=== PATIENT | male | born 1940 | race Caucasian/White ===

== ENCOUNTER 2016-06-30 18:33 | Emergency (ER) | payer MEDICARE, MEDICAID ==
[2014-08-04 22:23] VITALS: BMI 30.3
[~2016-06-30 18:33] MED LIST: ACTOS30 MG PO; CARDIZEM 90 MG90 MG PO; COMBIVENT RESPIM4 GM INH; GLUCOPHAGE500 MG PO; LEVAQUIN750 MG PO; STERAPRED 5MG 125 MG PO
[2016-06-30 19:22] LABS: BASOPHILS 0.3 % (0.0-2.0); HEMOGLOBIN 12.5 g/dL (13.5-17.5); IMMATURE GRANULOCYTES 0.2 % (0-5); LYMPHOCYTES 13.3 % (15-50); MCH 27.6 pg (26.0-34.0); MCHC 32.1 g/dL (31.0-37.0); MCV 86.1 fL (80.0-100.0); MONOCYTES 7.5 % (2-11); NEUTROPHILS 71.7 % (40-80); PLATELET COUNT 284 10x3/uL (130-400); RBC 4.53 10x6/uL (4.20-6.10); RDW 14.5 % (11.5-14.5); WBC 9.7 10x3/uL (4.8-10.8)
[2016-06-30 19:31] LABS: ANION GAP 12.2 mmol/L (8-16); CALCIUM 8.9 mg/dL (8.5-10.1); CARBON DIOXIDE 28.2 mmol/L (21.0-32.0); CREATININE - SERUM 1.2 mg/dL (0.6-1.3); POTASSIUM - SERUM 4.4 mmol/L (3.5-5.1)
== END 2016-06-30 20:41 | disposition home or self-care (01) ==
LOC: D.ER 18:33
PROVIDERS: Family Medicine
DX: R42 Dizziness and giddiness (principal); E11.9 Type 2 diabetes mellitus without complications; I10 Essential (primary) hypertension; J44.9 Chronic obstructive pulmonary disease, unspecified

== ENCOUNTER 2016-10-10 17:27 | Inpatient (IN) | payer MEDICARE, MEDICAID ==
[~2016-10-10] VITALS: Ht 171.4 cm; Wt 86.2 kg
[2016-10-10 18:08] LABS: BASOPHILS 0.7 % (0-2); EOSINOPHILS 3.4 % (0-7); HEMATOCRIT 43.1 % (42.0-54.0); HEMOGLOBIN 14.3 g/dL (13.5-17.5); IMMATURE GRANULOCYTES 0.5 % (0-5); LYMPHOCYTES 17.3 % (15-50); MCH 29.5 pg (26.0-34.0); MCHC 33.2 g/dL (31.0-37.0); MEAN PLATELET VOLUME 11.1 fL (7.4-10.4); MONOCYTES 8.4 % (2-11); NEUTROPHILS 69.7 % (40-80); PLATELET COUNT 329 10x3/uL (130-400); RBC 4.84 10x6/uL (4.20-6.10); RDW 13.9 % (11.5-14.5); WBC 10.4 10x3/uL (4.8-10.8)
[2016-10-10 18:42] LABS: ALBUMIN 3.5 g/dL (3.4-5.0); ANION GAP 18.3 mmol/L (8-16); BILIRUBIN - TOTAL 0.5 mg/dL (0.2-1.3); CALCIUM 9.4 mg/dL (8.5-10.1); CREATININE - SERUM 1.6 mg/dL (0.6-1.3); POTASSIUM - SERUM 5.3 mmol/L (3.5-5.1); PROTEIN - SERUM 8.5 g/dL (6.4-8.2)
[2016-10-10 20:09] LABS: APPEARANCE SLT CLOUDY (CLEAR); BILIRUBIN NEGATIVE (NEGATIVE); COLOR YELLOW (YELLOW); GLUCOSE 1000 mg/dL (NEGATIVE); KETONE SMALL mg/dL (NEGATIVE); LEUKOCYTE ESTERASE 2+ (NEGATIVE); NITRITE NEGATIVE (NEGATIVE); PROTEIN NEGATIVE (NEGATIVE); UROBILINOGEN NORMAL (NORMAL)
[2016-10-10 20:12] LABS: BACTERIA FEW /hpf (NONE SEEN); EPITHELIAL CELLS RARE /hpf (0-5); RED CELLS - URINE 0-5 /hpf (0-5); WHITE CELLS - URINE >50 /hpf (0-5)
[2016-10-10] MEDS ORDERED: FERROUS SULFAT325 MG PO (21:51)
[2016-10-10] MEDS ORDERED: PROVENTIL HFA6.7 GM INH (21:52)
[2016-10-10] MEDS ORDERED: COMBIVENT RESPIM4 GM INH (21:53)
--- NOTE | 2016-10-10 21:59 | NUR ---
RECIEVED TO ROOM 2228 VIA WHEELCHAIR FROM ER AWAKE AND ALERT ORINETD X 3 LUNGS CLAER BILAT. LAST FSBS AT 2100 283 TREATED IN ER. WILL MONITOR.
[2016-10-10 22:37] VITALS: BP 115/66; BMI 29.3
--- NOTE | 2016-10-11 02:16 | NUR ---
PT RESTING QUIETLY WITH NO DISTRESS NOTED VOICES ALL NEEDS TO STAFF STATED TO THIS NURSE THAT HE WAS HUNGRY AND HAD NOT EATEN SINCE BEFORE NOON WAS GIVEN A SANDWICH TRAY AND A CUP OF COFFEE PER REQUEST WELL A GALSS OF ICE WATER. WILL MONITOR.
[2016-10-11 04:00] VITALS: BP 97/47
--- NOTE | 2016-10-11 05:20 | NUR ---
PT RESTING WELL IN BED WITH EYES CLOSED NO ACUTE DISTRESS NOTED. CALL LIGHT IN REACH SIDE RAILS UP X 2
[2016-10-11 08:44] VITALS: BP 93/60
[2016-10-11 10:46] VITALS: Ht 171.4 cm; Wt 86.2 kg
[2016-10-11 11:09] LABS: BASOPHILS 0.6 % (0-2); EOSINOPHILS 5.9 % (0-7); HEMATOCRIT 39.2 % (42.0-54.0); IMMATURE GRANULOCYTES 0.3 % (0-5); LYMPHOCYTES 21.3 % (15-50); MCHC 33.2 g/dL (31.0-37.0); MCV 87.5 fL (80.0-100.0); MEAN PLATELET VOLUME 10.5 fL (7.4-10.4); NEUTROPHILS 61.9 % (40-80); PLATELET COUNT 281 10x3/uL (130-400); RBC 4.48 10x6/uL (4.20-6.10); RDW 13.8 % (11.5-14.5)
[2016-10-11 11:12] LABS: WBC 6.8 10x3/uL (4.8-10.8)
[2016-10-11 11:34] LABS: ALBUMIN 2.9 g/dL (3.4-5.0); ANION GAP 11.1 mmol/L (8-16); BILIRUBIN - TOTAL 0.44 mg/dL (0.2-1.3); CALCIUM 8.3 mg/dL (8.5-10.1); CREATININE - SERUM 1.5 mg/dL (0.6-1.3); POTASSIUM - SERUM 4.8 mmol/L (3.5-5.1); PROTEIN - SERUM 7.3 g/dL (6.4-8.2)
[2016-10-11 11:35] LABS: CARBON DIOXIDE 27.7 mmol/L (21.0-32.0)
[2016-10-11 12:40] VITALS: BP 104/59
[2016-10-11 12:47] LABS: HEMOGLOBIN A1C 13.1 % (4.8-6.0)
[2016-10-11 16:12] VITALS: BP 109/59
[2016-10-11 19:00] VITALS: BP 111/63
--- NOTE | 2016-10-11 19:30 | NUR ---
PT ASSESSMENT COMPLETE NO ACUTE DISTRESSNTOED VOICES ALL NEEDS TO STAFF PT AWAKE AND ALERT LYING IN BED MOVES ALL EXTREMITIES TO COMMAND BLOOD SUGAR TREATED PER SLIDING SCALE INSULIN PER ORDER WILL MONITOR.
--- NOTE | 2016-10-11 21:00 | NUR ---
PT FSBS 295 TREATED PER ORDER GIVEN SNACK OF PEANUT BUTTER AND GRAHM CRACKERS AND MILK TO PREVENT HYOGYLECMIC EPISODE AFTER TREATMENT OF BLOOD GLUCOSE.
--- NOTE | 2016-10-11 22:56 | NUR ---
ASSESSED, PT IS ASLEEP WITH EASY RESPIRATIONS AND NO DISTRESS NOTED. O2 AT 2 LITERS, TV ON, BED IS LOW, RAILS UP X'1 WITH THE BED ALARM AT HAND.
[2016-10-12] VITALS (7 sets, daily range): BP systolic 93–126; BP diastolic 50–73
--- NOTE | 2016-10-12 01:01 | NUR ---
RESTING IN BED WIH EYES CLOSED LEFT SIDE LYING NO DISTRESS NOTED SIDE RAILS UP X 2 CALL LIGHT IN REACH
--- NOTE | 2016-10-12 04:43 | NUR ---
PT WITH NO ACUTE DISTRESS NOTED VOICES ALL NEEDS OT STAFF CALL LIGHT INREACH SIDE RAILS UP X 2 EYES CLOSED RESPS EVEN AND NON LABORED AROUSES EASILY TO VERBAL STIMULI
--- NOTE | 2016-10-12 05:55 | NUR ---
FSBS 405 COVERED WITH 20 UNITS OF HUMULIN R PER ORDER VERIFIED PER RELOCATION COMMISSIONER. GIVEN 2% MILK FOR PROTIEN BALANCE
[2016-10-12 06:11] LABS: BASOPHILS 0.6 % (0-2); EOSINOPHILS 6.8 % (0-7); HEMATOCRIT 38.5 % (42.0-54.0); HEMOGLOBIN 12.7 g/dL (13.5-17.5); IMMATURE GRANULOCYTES 0.4 % (0-5); LYMPHOCYTES 23.2 % (15-50); MCH 29.1 pg (26.0-34.0); MCV 88.1 fL (80.0-100.0); MEAN PLATELET VOLUME 10.9 fL (7.4-10.4); MONOCYTES 11.5 % (2-11); NEUTROPHILS 57.5 % (40-80); PLATELET COUNT 288 10x3/uL (130-400); RBC 4.37 10x6/uL (4.20-6.10); RDW 13.8 % (11.5-14.5); WBC 8.4 10x3/uL (4.8-10.8)
[2016-10-12 06:44] LABS: ALBUMIN 2.8 g/dL (3.4-5.0); ANION GAP 11.7 mmol/L (8-16); BILIRUBIN - TOTAL 0.3 mg/dL (0.2-1.3); CALCIUM 8.5 mg/dL (8.5-10.1); CARBON DIOXIDE 27.1 mmol/L (21.0-32.0); CREATININE - SERUM 1.5 mg/dL (0.6-1.3); POTASSIUM - SERUM 4.8 mmol/L (3.5-5.1); PROTEIN - SERUM 7.6 g/dL (6.4-8.2)
--- NOTE | 2016-10-12 07:35 | NUR ---
PT AOX4 RESP EVEN AND NONLABORED PT DENIES NEEDS AT THIS TIME IV TO LEFT FOREARM PATENT AND INTACT AT THIS TIME IV TO LEFT FOREARM PATENT AND INTACT SRX2 BED AT LOWEST SETTING CALL LIGHT WITHIN REACH WILL CONTINUE TO MONITOR
[2016-10-12 09:45] LABS: APPEARANCE TURBID (CLEAR); BILIRUBIN NEGATIVE (NEGATIVE); COLOR YELLOW (YELLOW); GLUCOSE 1000 mg/dL (NEGATIVE); KETONE NEGATIVE (NEGATIVE); LEUKOCYTE ESTERASE 2+ (NEGATIVE); NITRITE NEGATIVE (NEGATIVE); PROTEIN TRACE mg/dL (NEGATIVE); SPECIFIC GRAVITY 1.015 (1.005-1.020); UROBILINOGEN NORMAL (NORMAL)
[2016-10-12 09:49] LABS: BACTERIA MANY /hpf (NONE SEEN); EPITHELIAL CELLS OCC /hpf (0-5); RED CELLS - URINE 0-5 /hpf (0-5); WHITE CELLS - URINE >50 /hpf (0-5)
[2016-10-12] MEDS ORDERED: ROBAXIN-750750 MG PO (18:41)
[2016-10-12] MEDS ORDERED: LIPITOR20 MG PO (18:43)
[2016-10-12] MEDS ORDERED: LISINOPRIL2.5 MG PO (18:43)
[2016-10-12] MEDS ORDERED: BAYER CHEWABLE81 MG PO (18:44)
[2016-10-12] MEDS ORDERED: FERROUS SULFAT325 MG PO (18:45)
[2016-10-12] MEDS ORDERED: CARDIZEM60 MG PO (18:47)
--- NOTE | 2016-10-13 02:48 | NUR ---
RESTING WITH EYES CLOSED, NO DISTRESS NOTED, SAFETY MEASURES IN PLACE, CL IN REACH
[2016-10-13 03:54] VITALS: BP 116/54
[2016-10-13 06:46] LABS: BASOPHILS 0.7 % (0-2); EOSINOPHILS 7.7 % (0-7); HEMATOCRIT 37.3 % (42.0-54.0); HEMOGLOBIN 12.2 g/dL (13.5-17.5); IMMATURE GRANULOCYTES 0.4 % (0-5); LYMPHOCYTES 25.9 % (15-50); MCH 28.6 pg (26.0-34.0); MCHC 32.7 g/dL (31.0-37.0); MCV 87.6 fL (80.0-100.0); MEAN PLATELET VOLUME 11.2 fL (7.4-10.4); MONOCYTES 12.3 % (2-11); PLATELET COUNT 286 10x3/uL (130-400); RBC 4.26 10x6/uL (4.20-6.10); RDW 13.8 % (11.5-14.5); WBC 8.6 10x3/uL (4.8-10.8)
[2016-10-13 07:10] LABS: ALBUMIN 2.7 g/dL (3.4-5.0); BILIRUBIN - TOTAL 0.37 mg/dL (0.2-1.3); CALCIUM 8.1 mg/dL (8.5-10.1); CARBON DIOXIDE 26.7 mmol/L (21.0-32.0); CREATININE - SERUM 1.2 mg/dL (0.6-1.3); POTASSIUM - SERUM 4.7 mmol/L (3.5-5.1); PROTEIN - SERUM 7.3 g/dL (6.4-8.2)
--- NOTE | 2016-10-13 07:25 | NUR ---
SLEEPING AT THIS TIME WITH RESPIRATIONS EVEN AND NON LABORED. CALL LIGHT IN REACH, WILL CONTINUE WITH PLAN OF CARE.
[2016-10-13 08:59] VITALS: BP 121/59
--- NOTE | 2016-10-13 09:00 | NUR ---
DENIES NEEDS AT THIS TIME. ASSESSMENT PERFORMED PER FLOWSHEET. CALL LIGHT IN REACH, WILL CONTINUE WITH PLAN OF CARE
[2016-10-13] MEDS ORDERED: GLUCOTROL 5 MG T5 MG PO (13:29)
[2016-10-13] MEDS ORDERED: BACTRIM DS TABL1 TAB PO (13:37)
--- NOTE | 2016-10-13 14:03 | NUR ---
IV TO LEFT AC D/C WITH CATH TIP INTACT. DISCHARGE PAPERWORK REVIEWED AND PT D/C HOME WITH HIS .
== END 2016-10-13 14:04 | disposition home or self-care (01) | DRG 638 ==
LOC: D.ER 17:27 → D.MS 19:57
PROVIDERS: Emergency Medicine; ADMIT Emergency Medicine
DX: E11.65 Type 2 diabetes mellitus with hyperglycemia (principal); E87.1 Hypo-osmolality and hyponatremia; N17.9 Acute kidney failure, unspecified; E87.5 Hyperkalemia; Z87.891 Personal history of nicotine dependence; J44.9 Chronic obstructive pulmonary disease, unspecified; I10 Essential (primary) hypertension

== ENCOUNTER 2016-10-22 16:50 | Inpatient (IN) | payer MEDICARE, MEDICAID ==
[~2016-10-22] VITALS: Ht 172.7 cm; Wt 81.8 kg
[~2016-10-22 16:50] MED LIST changes: +BACTRIM DS TABL1 TAB PO; +BAYER CHEWABLE81 MG PO; +CARDIZEM60 MG PO; +FERROUS SULFAT325 MG PO; +GLUCOTROL 5 MG T5 MG PO; +LIPITOR20 MG PO; +LISINOPRIL2.5 MG PO; +PROVENTIL HFA6.7 GM INH; +ROBAXIN-750750 MG PO
[2016-10-22 17:30] LABS: BASOPHILS 0.6 % (0-2); EOSINOPHILS 2.9 % (0-7); HEMATOCRIT 41.2 % (42.0-54.0); HEMOGLOBIN 13.8 g/dL (13.5-17.5); IMMATURE GRANULOCYTES 0.4 % (0-5); LYMPHOCYTES 17.5 % (15-50); MCH 29.6 pg (26.0-34.0); MCHC 33.5 g/dL (31.0-37.0); MCV 88.2 fL (80.0-100.0); MEAN PLATELET VOLUME 10.3 fL (7.4-10.4); MONOCYTES 7.8 % (2-11); NEUTROPHILS 70.8 % (40-80); RBC 4.67 10x6/uL (4.20-6.10); RDW 13.6 % (11.5-14.5); WBC 10.3 10x3/uL (4.8-10.8)
[2016-10-22 17:34] LABS: PLATELET COUNT 376 10x3/uL (130-400)
[2016-10-22 17:54] LABS: ALBUMIN 3.8 g/dL (3.4-5.0); ANION GAP 17.1 mmol/L (8-16); BILIRUBIN - TOTAL 0.28 mg/dL (0.2-1.3); CALCIUM 9.3 mg/dL (8.5-10.1); CARBON DIOXIDE 21.4 mmol/L (21.0-32.0); CREATININE - SERUM 1.9 mg/dL (0.6-1.3); PROTEIN - SERUM 8.7 g/dL (6.4-8.2)
[2016-10-22 18:07] LABS: POTASSIUM - SERUM 8.5 mmol/L (3.5-5.1)
[2016-10-22 19:45] LABS: CKMB 0.9 U/L (0.0-3.6); CREATINE KINASE 91 UL (21-232)
[2016-10-22 19:48] LABS: TROPONIN-I < 0.017 ng/mL (0.000-0.060)
[2016-10-22 21:09] LABS: APPEARANCE CLEAR (CLEAR); BACTERIA MODERATE /hpf (NONE SEEN); BILIRUBIN NEGATIVE (NEGATIVE); COLOR YELLOW (YELLOW); GLUCOSE 500 mg/dL (NEGATIVE); KETONE NEGATIVE (NEGATIVE); LEUKOCYTE ESTERASE 2+ (NEGATIVE); NITRITE NEGATIVE (NEGATIVE); PROTEIN NEGATIVE (NEGATIVE); UROBILINOGEN NORMAL (NORMAL); WHITE CELLS - URINE 25-50 /hpf (0-5)
[2016-10-22 23:14] LABS: ALBUMIN 3.4 g/dL (3.4-5.0); BILIRUBIN - TOTAL 0.45 mg/dL (0.2-1.3); CALCIUM 9.1 mg/dL (8.5-10.1); CARBON DIOXIDE 18.6 mmol/L (21.0-32.0); CREATININE - SERUM 1.6 mg/dL (0.6-1.3); PROTEIN - SERUM 8.4 g/dL (6.4-8.2)
[2016-10-22 23:24] LABS: POTASSIUM - SERUM 6.6 mmol/L (3.5-5.1)
--- NOTE | 2016-10-23 01:20 | NUR ---
RECIEVED TO ROOM 2117 FROM ER VIA . PT A&O. O2 AT 3 LITER VIA NC. IV TO RIGHT FOREARM SL. SITE CLEAN AND DRY. VITALS STABLE. PLACED ON TELEMETRY, 67 SR PER MT. HX AND MED REC DONE. PT DENIES PAIN AT THIS TIME, SANDWHICH TRAY GIVEN AT PT REQUEST.
[2016-10-23] MEDS ORDERED: BACTRIM DS TABL1 TAB PO (01:34)
[2016-10-23] MEDS ORDERED: ASMANEX0.135 GM INH (01:34)
[2016-10-23 02:01] VITALS: BP 119/71; Ht 172.7 cm; Wt 81.8 kg
--- NOTE | 2016-10-23 03:40 | NUR ---
PLATFORM MILL SUPERVISOR AT BED SIDE TO OBTAIN VITALS, WILL CONT TO MONITOR.
--- NOTE | 2016-10-23 03:43 | NUR ---
RESTING WITH EYES CLOSED, RESPERATIONS EVEN, NO S/S DISTRESS NOTED.
[2016-10-23 04:51] VITALS: BP 120/72
[2016-10-23 06:53] LABS: BASOPHILS 0.9 % (0-2); EOSINOPHILS 5.4 % (0-7); HEMATOCRIT 38.6 % (42.0-54.0); HEMOGLOBIN 12.7 g/dL (13.5-17.5); IMMATURE GRANULOCYTES 0.3 % (0-5); LYMPHOCYTES 27.8 % (15-50); MCH 28.9 pg (26.0-34.0); MCHC 32.9 g/dL (31.0-37.0); MCV 87.7 fL (80.0-100.0); MEAN PLATELET VOLUME 10.2 fL (7.4-10.4); MONOCYTES 9.1 % (2-11); NEUTROPHILS 56.5 % (40-80); PLATELET COUNT 354 10x3/uL (130-400); RDW 13.6 % (11.5-14.5); WBC 9.5 10x3/uL (4.8-10.8)
[2016-10-23 07:04] LABS: ALBUMIN 3.2 g/dL (3.4-5.0); BILIRUBIN - TOTAL 0.3 mg/dL (0.2-1.3); CALCIUM 8.8 mg/dL (8.5-10.1); CARBON DIOXIDE 22.2 mmol/L (21.0-32.0); CREATININE - SERUM 1.6 mg/dL (0.6-1.3); MAGNESIUM - SERUM 1.8 mg/dL (1.8-2.4); PHOSPHOROUS 4.6 mg/dL (2.5-4.9); PROTEIN - SERUM 7.4 g/dL (6.4-8.2)
[2016-10-23 07:33] LABS: ANION GAP 16.3 mmol/L (8-16); POTASSIUM - SERUM 6.5 mmol/L (3.5-5.1)
--- NOTE | 2016-10-23 07:50 | NUR ---
[facility] CALLED TO LIEN FOR DR. CORONA. NEW ORDERS GIVEN. IV PATENT. TELEMETRY SR. WILL CONT. PLAN OF CARE.
[2016-10-23 09:07] VITALS: BP 119/68
[2016-10-23 12:08] VITALS: BP 116/64
--- NOTE | 2016-10-23 13:47 | NUR ---
Nutrition education for low K diet: Instructed pt on a low K diet. Reviewed diet with pt and answered questions. Provided pt with printed diet information. RDN following.
[2016-10-23 14:22] LABS: CKMB 1.3 U/L (0.0-3.6); CREATINE KINASE 113 UL (21-232); TROPONIN-I < 0.017 ng/mL (0.000-0.060)
[2016-10-23 16:32] VITALS: BP 108/63
[2016-10-23 16:47] LABS: ANION GAP 14.5 mmol/L (8-16); CALCIUM 8.1 mg/dL (8.5-10.1); CARBON DIOXIDE 23.2 mmol/L (21.0-32.0); CREATININE - SERUM 1.6 mg/dL (0.6-1.3)
[2016-10-23 16:51] LABS: POTASSIUM - SERUM 4.7 mmol/L (3.5-5.1)
--- NOTE | 2016-10-23 20:40 | NUR ---
RESUMED CARE OF PT, LYING IN BED RESPIRATIONS EVEN AND UNLABORED ON ROOM AIR. RIGHT FOREARM INFUSING NS@ 150. 98 SR ON TELEMETRY. NO NEEDS VOICED AT THIS TIME. CALL LIGHT IN REACH. SEE NURSE ASSESSMENT. WILL CONTINUE TO MONITOR.
[2016-10-23 21:35] LABS: CKMB 1.2 U/L (0.0-3.6); CREATINE KINASE 141 UL (21-232); TROPONIN-I < 0.017 ng/mL (0.000-0.060)
[2016-10-23 23:32] VITALS: BP 116/59
[2016-10-24 01:19] LABS: CKMB 1.5 U/L (0.0-3.6); CREATINE KINASE 141 UL (21-232); TROPONIN-I < 0.017 ng/mL (0.000-0.060)
--- NOTE | 2016-10-24 01:34 | NUR ---
CALL LIGHT IN REACH, WILL CONTINUE WITH PLAN OF CARE.
[2016-10-24 06:05] LABS: BASOPHILS 0.5 % (0-2); EOSINOPHILS 6.6 % (0-7); HEMATOCRIT 35.4 % (42.0-54.0); HEMOGLOBIN 11.5 g/dL (13.5-17.5); IMMATURE GRANULOCYTES 0.3 % (0-5); LYMPHOCYTES 23.5 % (15-50); MCH 28.8 pg (26.0-34.0); MCHC 32.5 g/dL (31.0-37.0); MCV 88.7 fL (80.0-100.0); MEAN PLATELET VOLUME 9.6 fL (7.4-10.4); MONOCYTES 8.1 % (2-11); PLATELET COUNT 291 10x3/uL (130-400); RBC 3.99 10x6/uL (4.20-6.10); RDW 13.6 % (11.5-14.5); WBC 7.5 10x3/uL (4.8-10.8)
[2016-10-24 06:18] LABS: ANION GAP 12.9 mmol/L (8-16); CALCIUM 7.4 mg/dL (8.5-10.1); CARBON DIOXIDE 24.4 mmol/L (21.0-32.0); POTASSIUM - SERUM 4.3 mmol/L (3.5-5.1)
[2016-10-24 06:24] VITALS: BP 106/65
[2016-10-24 06:29] LABS: CREATININE - SERUM 1.1 mg/dL (0.6-1.3)
[2016-10-24 08:00] VITALS: BP 126/70
[2016-10-24 12:00] VITALS: BP 145/71
[2016-10-24 16:00] VITALS: BP 119/51
--- NOTE | 2016-10-24 17:22 | NUR ---
FSBS 112
--- NOTE | 2016-10-24 17:46 | NUR ---
REVIEWED DISCHARGE INSTRUCTIONS PT STATES UNDERSTANDING COPY GIVEN DCD RFA SALINE LOCK WITH IV CATHETER INTACT SITE FREE OF REDNESS OR EDEMA PT DISCHARGED HOME LEFT UNIT VIA W/C IN STABLE CONDITION WITH ALL PERSONAL BELONGINGS
--- NOTE | 2016-10-24 19:55 | NUR ---
Patient Name: ASHANTI HOYOS Admission Status: ER Accout number: [id number] Admission Date: 10-23-2016 : 1940 Admission Diagnosis: Attending: SUKH Current LOS: 1 Anticipated DC Date: 10-24-2016 Planned Disposition: Home Primary Insurance: [employer] ADV LATE ENTRY: Discharge Planning Comments: * Is the patient Alert and Oriented? Yes 0 * How many steps to enter\exit or inside your home? 3 W/RAMP 0 * PCP DR. OJEDA, [facility] 0 * Pharmacy [facility] [place] [facility] 0 * Preadmission Environment Home with Family 0 * ADLs Independent 0 * Equipment Glucometer Oxygen 0 * Other Equipment HOME AND PORTABLE OXYGEN [facility] - MEDICAL EQUIPMENT PROVIDER 0 * List name and contact numbers for known caregivers / representatives who currently or will assist patient after discharge: KADEN HOYOS, SPOUSE, 0 * Community resources currently utilized None 0 * Please name any agencies selected above. NONE 0 * Additional services required to return to the preadmission environment? No 0 * Can the patient safely return to the preadmission environment? Yes 0 * Has this patient been hospitalized within the prior 30 days at any hospital? Yes 0 CM MET WITH PT AND SPOUSE IN ROOM TO DISCUSS DISCHARGE PLANNING AND NEEDS. PT REPORTS HE WAS ASKED IF HE WANTED TO TRANSFER TO THE [place] IN THE EMERGENCY ROOM, HE REFUSED AND DOES NOT WANT TO GO TO [facility] IN [place] I LIVE HERE AND WANT TO BE LOCAL. PT REPORTS LIVING AT HOME INDEPENDENTLY WITH SPOUSE. PT HAS GLUCOMETER AND OXYGEN FROM [facility]. PT HAS NO OUTSIDE SERVICES ASSISTING IN THE HOME. CM DISCUSSED AVAILABILITY OF HOME HEALTH, REHAB SERVICES AND MEDICAL EQUIPMENT. PT DENIES DISCHARGE NEEDS, ASKED CM TO FAX HOSPITAL DISCHARGE INFOMATION TO [facility], REPORTS HIS IS HERE TO PICK HIM UP FOR DISCHARGE HOME. CM FAXED PT'S DISCHARGE INFORMATION TO [facility] AT [phone]. Divine Healer: Aguila Hendricks
== END 2016-10-24 17:46 | disposition home or self-care (01) | DRG 683 ==
LOC: D.ER 16:50 → D.M2 23:42 → OBSVTIME 23:42 → D.M2 10-23 15:19
PROVIDERS: Emergency Medicine; Family Medicine; Nurse Practitioner Family; ADMIT Family Medicine
DX: N17.9 Acute kidney failure, unspecified (principal); E87.1 Hypo-osmolality and hyponatremia; E11.65 Type 2 diabetes mellitus with hyperglycemia; E87.5 Hyperkalemia; J44.9 Chronic obstructive pulmonary disease, unspecified; K21.9 Gastro-esophageal reflux disease without esophagitis; Z87.891 Personal history of nicotine dependence

== ENCOUNTER 2017-01-09 14:52 | Emergency (ER) | payer MEDICARE, MEDICAID ==
[2016-10-23 02:01] VITALS: BMI 28.9
[~2017-01-09 14:52] MED LIST changes: +ASMANEX0.135 GM INH
[2017-01-09 15:22] LABS: BASOPHILS 0.2 % (0-2); HEMATOCRIT 41.7 % (42.0-54.0); HEMOGLOBIN 13.7 g/dL (13.5-17.5); IMMATURE GRANULOCYTES 0.2 % (0-5); LYMPHOCYTES 11.8 % (15-50); MCH 29.7 pg (26.0-34.0); MCHC 32.9 g/dL (31.0-37.0); MCV 90.5 fL (80.0-100.0); MEAN PLATELET VOLUME 10.3 fL (7.4-10.4); MONOCYTES 7.6 % (2-11); NEUTROPHILS 77.2 % (40-80); PLATELET COUNT 381 10x3/uL (130-400); RBC 4.61 10x6/uL (4.20-6.10); RDW 13.8 % (11.5-14.5); WBC 17.4 10x3/uL (4.8-10.8)
[2017-01-09 16:16] LABS: ALBUMIN 3.9 g/dL (3.4-5.0); ALKALINE PHOSPHATASE 89 U/L (46-116); ALT (SGPT) 21 U/L (10-68); CALC OSMOLALITY 269 mosm/kg (275-300); CHLORIDE - SERUM 99 mmol/L (98-107); CREATININE - SERUM 1.2 mg/dL (0.6-1.3); GLUCOSE 114 mg/dL (74-106); POTASSIUM - SERUM 5.4 mmol/L (3.5-5.1); PROTEIN - SERUM 8.6 g/dL (6.4-8.2); SODIUM 134 mmol/L (136-145); UREA NITROGEN 16 mg/dL (7-18); eGFR NON AFRICAN AMERICAN 63 mL/min (90-120)
[2017-01-09 16:25] LABS: CHOL - HDL RATIO 3.6 ratio (2.3-4.9); CHOLESTEROL, TOTAL 131 mg/dL (0-200); CKMB 1.4 U/L (0.0-3.6); CREATINE KINASE 107 UL (21-232); HDL CHOLESTEROL 36 mg/dL (32-96); LDL CHOLESTEROL 50 mg/dL (0-100); LDL-HDL RATIO 1.4 ratio (1.5-3.5); TRIGLYCERIDE 227 mg/dL (30-200); TROPONIN-I < 0.017 ng/mL (0.000-0.060)
[2017-01-09 17:42] LABS: APPEARANCE CLEAR (CLEAR); BILIRUBIN NEGATIVE (NEGATIVE); COLOR YELLOW (YELLOW); GLUCOSE NEGATIVE (NEGATIVE); KETONE NEGATIVE (NEGATIVE); NITRITE NEGATIVE (NEGATIVE); PROTEIN NEGATIVE (NEGATIVE); SPECIFIC GRAVITY 1.005 (1.005-1.020); UROBILINOGEN NORMAL (NORMAL)
== END 2017-01-09 18:40 | disposition home or self-care (01) ==
LOC: D.ER
PROVIDERS: Emergency Medicine; Nurse Practitioner Family
DX: J06.9 Acute upper respiratory infection, unspecified (principal); R05 Cough; R00.0 Tachycardia, unspecified

== ENCOUNTER → 2017-03-11 09:28 | Outpatient (CLI) | payer MEDICARE, MEDICAID ==
[2016-10-23 02:01] VITALS: BMI 28.9
== END | disposition home or self-care (01) ==
LOC: D.RT 09:28
DX: J44.9 Chronic obstructive pulmonary disease, unspecified (principal)

== ENCOUNTER → 2017-09-19 13:10 | Outpatient (CLI) | payer MEDICARE, MEDICAID ==
[2016-10-23 02:01] VITALS: BMI 28.9
== END | disposition home or self-care (01) ==
LOC: D.CT 13:10
DX: J84.9 Interstitial pulmonary disease, unspecified (principal)

== ENCOUNTER → 2017-12-31 09:30 | Outpatient (CLI) | payer MEDICARE ==
[2016-10-23 02:01] VITALS: BMI 28.9
--- NOTE | ~2017-12-31 | EC ---
PATIENT:ASHANTI HOYOS DATE OF SERVICE: 12/31/17 SEX: M MEDICAL RECORD: [id number] DATE OF : 42 LOCATION:D.LAB AGE OF PATIENT: 77 ADMISSION DATE: 12/31/17 REFERRING PHYSICIAN: INTERPRETING PHYSICIAN: ASHLEY CHAN MD ECHOCARDIOGRAM REPORT ECHO CHARGES 4 ECHO COMPLETE Date: 12/31/17 CLINICAL DIAGNOSIS: PULMONARY HTN, COPD ECHOCARDIOGRAPHIC MEASUREMENTS (adult normal given) AC root (d.<3.7cm) 3.6 cm LV Septum d (<1.2 cm> 1.0 cm Valve Excursion 1.5 cm LV Septum (systole) 1.1 cm Left Atria (s.<4.0cm> 3.8 cm LVPW d(<1.2cm) 1.0 cm RV (d.<2.3cm) 2.8 cm LVPW (sytole) 1.1 cm LV diastole(<5.6CM) 5.3 cm MV E-F(>70mm/sec) cm LV systole 4.1 cm LVOT Diameter 1.2 cm MV exc.(>10mm) cm Est.ejection fraction (50-75%) % DOPPLER: LVIT cm/sec A 76 cm/sec E 46 cm/sec LA cm/sec RVSP 18.7 mmHg LVOT 65 cm/sec AOP1/2T m/s Asc. Ao 93 cm/sec RVOT 77 cm/sec RA cm/sec PA 78 cm/sec AV Gradient Peak 3.5 mmHg AV Mean 2.1 mmHg AV Area 3.1 cm MV Gradient Peak 3.1 mmHg MV Mean 1.7 mmHg MV Area cm COMMENTS: Activities Counselor: Juliet BROOKS City Planning Teacher: Elizabeth Chan TAPE# PACS Pericardial Effusion N DATE OF SERVICE: 12/31/2017 PROCEDURE: Echocardiogram. FINDINGS: 1. Left ventricular chamber size is within normal limits. Left ventricular systolic function is normal. Overall ejection fraction estimated at 60%. 2. Left atrium, right atrium, and right ventricle chamber sizes are within normal limits. 3. Valvular structures have normal structure and motion. ECHOCARDIOGRAM REPORT [id number] ASHANTI HOYOS 4. Doppler interrogation reveals no significant valvular insufficiency or stenosis and pulmonary systolic pressure is preserved at 19 mmHg. 5. No evidence of pericardial effusion or left ventricular thrombus. TRANSINT:[id number] Voice Confirmation ID: [id number] DOCUMENT ID: [id number] ASHLEY CHAN MD at 1439 CC: [id number] DICTATION DATE: 12/31/17 1149 TELEVISION TUBE INSPECTOR: 12/31/17 1154 REG [facility] [address] [id number]
[2017-12-31 10:21] LABS: BASOPHILS 0.4 % (0-2); EOSINOPHILS 8.1 % (0-7); HEMATOCRIT 39.5 % (42.0-54.0); IMMATURE GRANULOCYTES 0.2 % (0-5); LYMPHOCYTES 17.7 % (15-50); MCH 29.3 pg (26.0-34.0); MCHC 32.9 g/dL (31.0-37.0); MEAN PLATELET VOLUME 10.1 fL (7.4-10.4); MONOCYTES 7.9 % (2-11); NEUTROPHILS 65.7 % (40-80); PLATELET COUNT 307 10x3/uL (130-400); RBC 4.44 10x6/uL (4.20-6.10); RDW 14.5 % (11.5-14.5); WBC 9.1 10x3/uL (4.8-10.8)
[2017-12-31 10:37] LABS: ALBUMIN 3.6 g/dL (3.4-5.0); ANION GAP 10.6 mmol/L (8-16); BILIRUBIN - TOTAL 0.28 mg/dL (0.2-1.3); CALCIUM 8.8 mg/dL (8.5-10.1); CARBON DIOXIDE 30.1 mmol/L (21.0-32.0); CREATININE - SERUM 1.4 mg/dL (0.6-1.3); POTASSIUM - SERUM 4.7 mmol/L (3.5-5.1); PROTEIN - SERUM 8.6 g/dL (6.4-8.2)
[2018-01-01 11:21] LABS: ANA REFLEX - DIRECT Negative (Negative)
[2018-01-01 12:18] LABS: IMMUNOGLOBULIN A 404 mg/dL (61-437); IMMUNOGLOBULIN G 1670 mg/dL (700-1600)
[2018-01-02 16:16] LABS: ANCA - ANTIMYELOPEROXIDASE <9.0 U/mL (0.0-9.0); ANCA - ANTIPROTEINASE 3 <3.5 U/mL (0.0-3.5); ANCA - ATYPICAL <1:20 titer (Neg:<1:20); ANCA - CYTOPLASMIC <1:20 titer (Neg:<1:20); ANCA - PERINUCLEAR <1:20 titer (Neg:<1:20)
== END | disposition home or self-care (01) ==
LOC: D.LAB 09:30 → D.ECHO 10:30 → D.RT 11:00
PROVIDERS: Internal Medicine Pulmonary Disease
DX: I27.20 Pulmonary hypertension, unspecified (principal); J44.9 Chronic obstructive pulmonary disease, unspecified; J84.9 Interstitial pulmonary disease, unspecified; J47.9 Bronchiectasis, uncomplicated

== ENCOUNTER → 2018-04-13 09:23 | Outpatient (CLI) | payer MEDICARE ==
[2016-10-23 02:01] VITALS: BMI 28.9
== END | disposition home or self-care (01) ==
LOC: D.ECHO 09:23
DX: I27.20 Pulmonary hypertension, unspecified (principal)

== ENCOUNTER → 2018-04-15 17:48 | Outpatient (CLI) | payer MEDICARE ==
[2016-10-23 02:01] VITALS: BMI 28.9
[2018-04-15 18:59] LABS: ALBUMIN 3.4 g/dL (3.4-5.0); BILIRUBIN - DIRECT 0.08 mg/dL (0.00-0.30); BILIRUBIN - INDIRECT 0.17 mg/dL (0.00-1.00); BILIRUBIN - TOTAL 0.25 mg/dL (0.2-1.3); PROTEIN - SERUM 7.9 g/dL (6.4-8.2)
== END | disposition home or self-care (01) ==
LOC: D.LABREF 17:48
PROVIDERS: Internal Medicine Pulmonary Disease
DX: J84.10 Pulmonary fibrosis, unspecified (principal)

== ENCOUNTER → 2018-06-19 11:56 | Outpatient (CLI) | payer MEDICARE ==
[2016-10-23 02:01] VITALS: BMI 28.9
[2018-06-19 14:30] LABS: ALBUMIN 3.5 g/dL (3.4-5.0); BILIRUBIN - DIRECT 0.05 mg/dL (0.00-0.30); BILIRUBIN - INDIRECT 0.2 mg/dL (0.00-1.00); BILIRUBIN - TOTAL 0.25 mg/dL (0.2-1.3); PROTEIN - SERUM 8.1 g/dL (6.4-8.2)
== END | disposition home or self-care (01) ==
LOC: D.RT 11:56
PROVIDERS: ATTEND Internal Medicine Pulmonary Disease
DX: J84.112 Idiopathic pulmonary fibrosis (principal)

== ENCOUNTER 2018-09-18 05:20 | Outpatient (CLI) | payer MEDICARE, MEDICAID ==
[~2018-09-18] VITALS: Ht 172.7 cm; Wt 88.9 kg
[~2018-09-18 05:20] MED LIST changes: +CARDIZEM CD120 MG PO; -CARDIZEM60 MG PO
[2018-09-18 05:35] LABS: BASOPHILS 0.4 % (0-2); EOSINOPHILS 5.2 % (0-7); HEMATOCRIT 41.3 % (42.0-54.0); HEMOGLOBIN 13.6 g/dL (13.5-17.5); IMMATURE GRANULOCYTES 0.3 % (0-5); LYMPHOCYTES 17.6 % (15-50); MCH 29.8 pg (26.0-34.0); MCHC 32.9 g/dL (31.0-37.0); MCV 90.4 fL (80.0-100.0); MEAN PLATELET VOLUME 9.2 fL (7.4-10.4); MONOCYTES 7.4 % (2-11); NEUTROPHILS 69.1 % (40-80); PLATELET COUNT 324 10x3/uL (130-400); RBC 4.57 10x6/uL (4.20-6.10); RDW 14.5 % (11.5-14.5); WBC 10.5 10x3/uL (4.8-10.8)
[2018-09-18 05:45] LABS: ANION GAP 10.6 mmol/L (8-16); APTT 28.2 SECONDS (22.8-39.4); CARBON DIOXIDE 28.6 mmol/L (21.0-32.0); CREATININE - SERUM 1.4 mg/dL (0.6-1.3); INR 1.03 (0.85-1.17); POTASSIUM - SERUM 4.2 mmol/L (3.5-5.1)
[2018-09-18] MEDS ORDERED: OFEV (06:23)
[2018-09-18 06:33] VITALS: Ht 172.7 cm; Wt 88.9 kg
--- NOTE | 2018-09-18 09:10 | NUR ---
REC'D FROM SPECIALS ACCOMPANIED BY FAMILY. NPO X2 HRS AWAITING CXR. DRESSING CDI TO BACK.
--- NOTE | 2018-09-18 09:40 | NUR ---
VSS. FAMILY AT BEDSIDE. DRESSING CDI.
--- NOTE | 2018-09-18 10:10 | NUR ---
AWAKE AND LYING IN BED WATCHING TV. NO C/O VOICED. FAMILY AT BEDSIDE.
--- NOTE | 2018-09-18 11:55 | NUR ---
REGULAR ADA SERVED TO PATIENT. X RAY WAS CLEAR.
--- NOTE | 2018-09-18 12:55 | NUR ---
TOLERATED REGULAR ADA DIET. IV DC'D WITH CATHETER INTACT. WRITTEN AND VERBAL DC INST. GIVEN TO PT. VERBALIZED UNDERSTANDING.
--- NOTE | 2018-09-18 13:10 | NUR ---
DC'D HOME WITH FAMILY VIA PRIVATE VEHICLE. STABLE AT TIME OF DC.
== END 2018-09-18 13:10 | disposition home or self-care (01) ==
LOC: D.RT → D.OPS 05:20 → D.RT 05:20 → D.CT 08:00 → D.OPS 13:10
PROVIDERS: Radiology Diagnostic Radiology; ATTEND Internal Medicine Cardiovascular Disease
DX: J44.9 Chronic obstructive pulmonary disease, unspecified (principal); R91.1 Solitary pulmonary nodule

== ENCOUNTER → 2019-01-14 14:32 | Outpatient (CLI) | payer MEDICARE, MEDICAID ==
[2018-09-18 06:33] VITALS: BMI 29.8
[~2019-01-14 14:32] MED LIST changes: +OFEV
[2019-01-14 15:15] LABS: ALBUMIN 3.3 g/dL (3.4-5.0); BILIRUBIN - DIRECT 0.05 mg/dL (0.00-0.30); BILIRUBIN - INDIRECT 0.43 mg/dL (0.00-1.00); BILIRUBIN - TOTAL 0.48 mg/dL (0.2-1.3); PROTEIN - SERUM 8.3 g/dL (6.4-8.2)
== END | disposition home or self-care (01) ==
LOC: D.LAB 14:32
PROVIDERS: ATTEND Internal Medicine
DX: J84.112 Idiopathic pulmonary fibrosis (principal)

== ENCOUNTER → 2019-06-07 10:33 | Outpatient (CLI) | payer MEDICARE, MEDICAID ==
[2018-09-18 06:33] VITALS: BMI 29.8
[2019-06-07 12:05] LABS: ALBUMIN 3.6 g/dL (3.4-5.0); BILIRUBIN - DIRECT 0.15 mg/dL (0.00-0.30); BILIRUBIN - INDIRECT 0.33 mg/dL (0.00-1.00); BILIRUBIN - TOTAL 0.48 mg/dL (0.2-1.3); PROTEIN - SERUM 8.8 g/dL (6.4-8.2)
== END | disposition home or self-care (01) ==
LOC: D.RT 10:33
PROVIDERS: ATTEND Internal Medicine Pulmonary Disease
DX: J44.9 Chronic obstructive pulmonary disease, unspecified (principal); J84.112 Idiopathic pulmonary fibrosis

== ENCOUNTER → 2019-12-30 14:47 | Outpatient (CLI) | payer MEDICARE, MEDICAID ==
[2018-09-18 06:33] VITALS: BMI 29.8
[2019-12-30 15:40] LABS: ALBUMIN 3.5 g/dL (3.4-5.0); BILIRUBIN - DIRECT 0.09 mg/dL (0.00-0.30); BILIRUBIN - INDIRECT 0.14 mg/dL (0.00-1.00); BILIRUBIN - TOTAL 0.23 mg/dL (0.2-1.3); PROTEIN - SERUM 8.3 g/dL (6.4-8.2)
== END | disposition home or self-care (01) ==
LOC: D.LABREF 14:47
PROVIDERS: ATTEND Internal Medicine Pulmonary Disease
DX: J84.112 Idiopathic pulmonary fibrosis (principal)

== ENCOUNTER → 2020-06-19 09:08 | Outpatient (CLI) | payer MEDICARE, MEDICAID ==
[2018-09-18 06:33] VITALS: BMI 29.8
== END | disposition home or self-care (01) ==
LOC: D.LAB
PROVIDERS: ATTEND Internal Medicine Pulmonary Disease
DX: Z11.52 Encounter for screening for COVID-19 (principal)

== ENCOUNTER → 2020-06-23 08:59 | Outpatient (CLI) | payer MEDICARE, MEDICAID ==
[2018-09-18 06:33] VITALS: BMI 29.8
[2020-06-23 10:27] LABS: ALBUMIN 3.7 g/dL (3.4-5.0); BILIRUBIN - DIRECT 0.07 mg/dL (0.00-0.30); BILIRUBIN - INDIRECT 0.21 mg/dL (0.00-1.00); BILIRUBIN - TOTAL 0.28 mg/dL (0.2-1.3)
== END | disposition home or self-care (01) ==
LOC: D.LAB 08:00 → D.RT 09:30
PROVIDERS: ATTEND Internal Medicine Pulmonary Disease
DX: J44.9 Chronic obstructive pulmonary disease, unspecified (principal); J84.112 Idiopathic pulmonary fibrosis; Z11.52 Encounter for screening for COVID-19